=== PATIENT | male | born 1990 | race Caucasian/White ===

== ENCOUNTER 2016-02-17 11:48 | Emergency (ER) | payer BC, OTHER ==
[2016-02-17 12:16] VITALS: TEMP 98.4; BMI 33.9
--- NOTE | 2016-02-17 12:57 | PDOC ---
History of Present Illness - General History Source: Patient Exam Limitations: No Limitations - History of Present Illness Initial Comments: 02/17/16 13:04 The patient is a 25-year-old man with no past medical history who presents to the emergency department for further evaluation of lightheadedness and generalized weakness today. Patient admits he has been heavily drinking alcohol for the past 2 days, as a result of the holidays. He state she woke up today, lightheaded, weak and nauseous. No vomiting. No chest pain, cough, shortness of breath, vomiting or any urinary complaints. <Brittani Arcos - Last Filed: 02/17/16 13:16> <Claudio Billings - Last Filed: 02/17/16 16:49> - General Chief Complaint: Lightheaded Stated Complaint: DIZZY WEAK Past History <Brittani Arcos - Last Filed: 02/17/16 13:16> - Psycho/Social/Smoking Cessation Hx Anxiety: No Suicidal Ideation: No Smoking History: Never smoked Information on smoking cessation initiated: No Hx Alcohol Use: Yes (SOCIAL) Substance Use Type: None <Claudio Billings - Last Filed: 02/17/16 16:49> - Past Medical History Allergies/Adverse Reactions: Allergies Allergy/AdvReac Type Severity Reaction Status Date / Time No Known Allergies Allergy Verified 02/17/16 12:16 Home Medications: Ambulatory Orders NK [No Known Home Medication] 01/07/14 Review of Systems - Review of Systems Able to Perform ROS?: Yes Comments:: 02/17/16 13:04 GENERAL/CONSTITUTIONAL: Yes: Weakness. No fever or chills. GASTROINTESTINAL: No nausea, vomiting, diarrhea or constipation. GENITOURINARY: No dysuria, frequency, or change in urination. NEUROLOGIC: Yes: Lightheadednes. No headache, vertigo, loss of consciousness, or change in strength/sensation. <Brittani Arcos - Last Filed: 02/17/16 13:16> *Physical Exam - Vital Signs Last Vital Signs Temp Pulse Resp BP Pulse Ox 98.4 F 54 L 18 134/76 100 02/17/16 12:13 02/17/16 12:13 02/17/16 12:13 02/17/16 12:13 02/17/16 12:13 - Physical Exam Comments: 02/17/16 13:04 GENERAL: Awake, alert, and fully oriented. Alcohol on breath. HEAD: No signs of trauma EYES: PERRLA, EOMI, sclera anicteric, conjunctiva clear ENT: Auricles normal inspection, hearing grossly normal, nares patent, oropharynx clear without exudates. Moist mucosa NECK: Normal ROM, supple, no lymphadenopathy, JVD, or masses LUNGS: Breath sounds equal, clear to auscultation bilaterally. No wheezes, and no crackles HEART: Regular rate and rhythm, normal S1 and S2, no murmurs, rubs or gallops ABDOMEN: Soft, nontender, normoactive bowel sounds. No guarding, no rebound. No masses EXTREMITIES: Normal range of motion, no edema. No clubbing or cyanosis. No cords, erythema, or tenderness NEUROLOGICAL: Cranial nerves II through XII grossly intact. Normal speech. <Brittani Arcos - Last Filed: 02/17/16 13:16> - Vital Signs Last Vital Signs Temp Pulse Resp BP Pulse Ox 98.4 F 54 L 18 134/76 100 02/17/16 12:13 02/17/16 12:13 02/17/16 12:13 02/17/16 12:13 02/17/16 12:13 <Claudio Billings - Last Filed: 02/17/16 16:49> ED Treatment Course - LABORATORY CBC & Chemistry Diagram: 02/17/16 13:40 02/17/16 13:40 <Claudio Billings - Last Filed: 02/17/16 16:49> *DC/Admit/Observation/Transfer <Brittani Arcos - Last Filed: 02/17/16 13:16> - Discharge Dispostion Admit: No <Claudio Billings - Last Filed: 02/17/16 16:49> Diagnosis at time of Disposition: Alcohol abuse - Discharge Dispostion Disposition: HOME Condition at time of disposition: Improved - Patient Instructions Additional Instructions: AVOID ALCOHOL
[2016-02-17] MEDS ORDERED: SODIUM CHLORIDE 1,000 ML IV STA (12:59)
[2016-02-17 13:55] LABS: BASOPHIL 0.2 % (0-2.0); EOSINOPHIL 0.6 % (0-4.5); MCHC 33.5 g/dl (32.0-35.9); MEAN CELL VOLUME 86.5 fl (80-96); MEAN PLT VOLUME 8.6 fl (7.5-11.1); NEUTROPHILS 81.2 % (42.8-82.8); PLATELET COUNT 219 K/MM3 (134-434); RDW 13.9 % (11.9-15.9); WHITE BLOOD COUNT 10.6 K/mm3 (4.0-10.0)
[2016-02-17 14:20] LABS: ALBUMIN 4.3 g/dl (3.4-5.0); ANION GAP 12 (8-16); CALCIUM 9.1 mg/dL (8.5-10.1); CO2 28 mmol/L (21-32); CREATININE 0.6 mg/dL (0.7-1.3); GLUCOSE,RANDOM 87 mg/dL (74-106); SGPT/ALT 53 U/L (12-78)
[2016-02-17 14:22] LABS: ALK PHOS 74 U/L (45-117); BILIRUBIN,TOTAL 0.5 mg/dL (0.2-1.0); TOT PROT 7.8 g/dl (6.4-8.2)
[2016-02-17 14:35] LABS: URINE APPEARANCE CLEAR; URINE BILIRUBIN NEGATIVE (NEGATIVE); URINE BLOOD NEGATIVE (NEGATIVE); URINE COLOR STRAW; URINE GLUCOSE (UA) NEGATIVE (NEGATIVE); URINE KETONE NEGATIVE (NEGATIVE); URINE LEUK ESTERASE NEGATIVE (NEGATIVE); URINE NITRITE NEGATIVE (NEGATIVE); URINE PROTEIN NEGATIVE (NEGATIVE); URINE UROBILINOGEN NEGATIVE E.U./dl (0.2-1.0)
[2016-02-17 14:36] LABS: SGOT/AST 29 U/L (15-37)
[2016-02-17 14:59] LABS: URINE MARIJUANA THC NEGATIVE ng/ml (CUTOFF=50)
[2016-02-17 17:07] VITALS: BP 146/58; PULSE 56
--- NOTE | 2016-02-18 09:48 | EKG ---
Test Reason : Blood Pressure : / mmHG Vent. Rate : 056 BPM Atrial Rate : 056 BPM P-R Int : 154 ms QRS Dur : 106 ms QT Int : 446 ms P-R-T Axes : 044 049 024 degrees QTc Int : 430 ms SINUS BRADYCARDIA OTHERWISE NORMAL ECG NO PREVIOUS ECGS AVAILABLE Confirmed by ANNA LOZANO MD ([id number]) on 02/18/2016 9:48:10 AM Referred By: Overread By: ANNA LOZANO MD
== END 2016-02-17 17:07 | disposition home or self-care (01) ==
LOC: JER 11:48
PROC: 3E0337Z Introduction of Electrolytic and Water Balance Substance into Peripheral Vein, Percutaneous Approach (ICD-10-PCS; principal; 2016-02-17)
DX: F10.10 Alcohol abuse, uncomplicated (principal)
CPT/HCPCS: 36415; 80053; 81003; 85025; 93005; 93010; 99283-25; G0479

== ENCOUNTER 2016-05-25 09:49 | Emergency (ER) | payer OTHER ==
[2016-05-25 09:56] VITALS: BP 145/76; PULSE 59; TEMP 98.4; BMI 34.0
--- NOTE | 2016-05-25 11:28 | PDOC ---
History of Present Illness - General Chief Complaint: Blood Pressure Problem Stated Complaint: HIGH BLOOD PRESSURE Time Seen by Provider: 05/25/16 11:10 History Source: Patient Exam Limitations: No Limitations - History of Present Illness Initial Comments: 05/25/16 11:22 Chief complaint: High blood pressure and heart rate Patient is a healthy 25-year-old male who saw his doctor 3 months ago for a physical who states that he drank 4-5 whiskeys last night which she typically does on the weekend and drank coffee this morning and felt like his blood pressure was going up and his heart was racing. He is asymptomatic now. Patient has no history of this, no history in his family of early , sudden or unexplained drownings. GENERAL/CONSTITUTIONAL: No fever, weakness. dizziness HEAD, EYES, EARS, NOSE AND THROAT: No change in vision. No ear pain or discharge. No sore throat. CARDIOVASCULAR: No chest pain RESPIRATORY: No shortness of breath or cough GASTROINTESTINAL: No pain, nausea, vomiting, diarrhea or constipation GENITOURINARY: No dysuria MUSCULOSKELETAL: No neck or back pain SKIN: No rash NEUROLOGIC: No headache, vertigo, loss of consciousness, or loss of sensation. GENERAL: The patient is awake, alert, and fully oriented, in no acute distress. HEAD: Normal with no signs of trauma. EYES: Pupils equal, round and reactive to light, sclera anicteric, conjunctiva clear. ENT: pharynx: no erythema, no exudate, uvula midline NECK: supple CHEST: clear, nontender, rr ABD: soft, nontender EXTREMITIES: Normal range of motion, no edema. NEUROLOGICAL: Normal speech, normal gait. SKIN: Warm, Dry Past History - Past Medical History Allergies/Adverse Reactions: Allergies Allergy/AdvReac Type Severity Reaction Status Date / Time No Known Allergies Allergy Verified 05/25/16 09:50 Home Medications: Ambulatory Orders NK [No Known Home Medication] 01/07/14 HTN: Yes (border line) - Psycho/Social/Smoking Cessation Hx Anxiety: No Suicidal Ideation: No Smoking History: Never smoked Have you smoked in the past 12 months: No Information on smoking cessation initiated: No Hx Alcohol Use: Yes (weekend) Drug/Substance Use Hx: No Substance Use Type: None *Physical Exam - Vital Signs Last Vital Signs Temp Pulse Resp BP Pulse Ox 98.4 F 59 L 18 145/76 100 05/25/16 09:52 05/25/16 09:52 05/25/16 09:52 05/25/16 09:52 05/25/16 09:52 Medical Decision Making - Medical Decision Making 05/25/16 11:33 pt is asymptomatic after an episode of feeling like his blood pressure went up and his heart was racing. Now with no high-risk history in his family for sudden . Patient has a primary care doctor at [facility], he just doesn't remember his name and he saw him within the last 3 months for the physical. Will be instructed not to drink alcohol, caffeine or stimulants and to hydrate and follow-up with his doctor and return if there is any issues *DC/Admit/Observation/Transfer Diagnosis at time of Disposition: History of palpitations - Discharge Dispostion Disposition: HOME Condition at time of disposition: Stable - Patient Instructions Additional Instructions: Sure you are drinking plenty of water do not drink caffeine that includes coffee, tea, caffeinated sodas and drinks Do not drink alcohol and make sure you call your doctor to schedule an appointment within the next week to further evaluate this and return to the ER if worse.
--- NOTE | 2016-05-27 14:13 | EKG ---
Test Reason : Blood Pressure : / mmHG Vent. Rate : 056 BPM Atrial Rate : 056 BPM P-R Int : 184 ms QRS Dur : 094 ms QT Int : 424 ms P-R-T Axes : 023 050 017 degrees QTc Int : 409 ms SINUS BRADYCARDIA OTHERWISE NORMAL ECG WHEN COMPARED WITH ECG OF 17-FEB-2016 14:27, NO SIGNIFICANT CHANGE WAS FOUND Confirmed by ALINA SPENCER MD ([id number]) on 05/27/2016 2:12:56 PM Referred By: Confirmed By:ALINA SPENCER MD
== END 2016-05-25 11:37 | disposition home or self-care (01) ==
LOC: JERFT 09:49
DX: I10 Essential (primary) hypertension (principal); R00.2 Palpitations
CPT/HCPCS: 93005; 93010; 99281-25

== ENCOUNTER 2018-02-11 10:49 | Emergency (ER) | payer OTHER ==
[2018-02-11 10:56] VITALS: BMI 38.7
[2018-02-11] MEDS ORDERED: LIDOCAINE HCL 2% JELLY (30 ML/TUBE) TP ONE (12:09)
--- NOTE | 2018-02-11 12:09 | PDOC ---
History of Present Illness - General Chief Complaint: Pain Stated Complaint: PAIN Time Seen by Provider: 02/11/18 11:32 History Source: Patient Exam Limitations: No Limitations - History of Present Illness Initial Comments: 02/11/18 12:43 Patient is a 27-year-old male with no past medical history who presents to the emergency department with 1 week of hemorrhoids. Patient states he was seen by urgent care and prescribed witch mino cream and Preparation H. He states it has not been helping of pain has gotten worse. He has been doing sitz baths at home. Denies fevers, chills, nausea, vomiting, diarrhea, constipation. Past History - Travel Traveled outside of the country in the last 30 days: No Close contact w/someone who was outside of country & ill: No - Past Medical History Allergies/Adverse Reactions: Allergies Allergy/AdvReac Type Severity Reaction Status Date / Time No Known Allergies Allergy Verified 02/11/18 10:52 Home Medications: Ambulatory Orders Docusate Sodium [Colace -] 100 mg PO BID #14 capsule 02/11/18 Lidocaine 2% Jelly [Xylocaine 2% Jelly -] 1 applic TP BID #1 tube 02/11/18 Phenyleph/Pramoxin/Glycr/W.pet [Preparation H Cream] 26 gm RC ASDIR 02/11/18 Witch Mino 50% (Tucks) [Tucks Witch Mino Pads] 0 pad TP ASDIR 02/11/18 HTN: Yes (border line) - Suicide/Smoking/Psychosocial Hx Smoking History: Never smoked Have you smoked in the past 12 months: No Hx Alcohol Use: Yes (weekend) Drug/Substance Use Hx: No Substance Use Type: None Review of Systems - Review of Systems Able to Perform ROS?: Yes Comments:: 02/11/18 12:09 CONSTITUTIONAL: Absent: fever, chills, diaphoresis, generalized weakness, malaise, loss of appetite HEENT: Absent: rhinorrhea, nasal congestion, throat pain, throat swelling, difficulty swallowing, mouth swelling, ear pain, eye pain, visual Changes CARDIOVASCULAR: Absent: chest pain, loss of consciousness, palpitations, irregular heart rate, peripheral edema RESPIRATORY: Absent: cough, shortness of breath, dyspnea with exertion, orthopnea, wheezing, stridor, hemoptysis GASTROINTESTINAL: Present: hemorrhoid Absent: abdominal pain, abdominal distension, nausea, vomiting, diarrhea, constipation, melena, hematochezia GENITOURINARY: Absent: dysuria, frequency, urgency, hesitancy, hematuria, flank pain, genital pain MUSCULOSKELETAL: Absent: myalgia, arthralgia, joint swelling SKIN: Absent: rash, itching, pallor HEMATOLOGIC/IMMUNOLOGIC: Absent: easy bleeding, easy bruising, lymphadenopathy, frequent infections ENDOCRINE: Absent: unexplained weight gain, unexplained weight loss, heat intolerance, cold intolerance NEUROLOGIC: Absent: headache, focal weakness or paresthesias, dizziness, unsteady gait, seizure, mental status changes, bladder or bowel incontinence PSYCHIATRIC: Absent: anxiety, depression, suicidal or homicidal ideation, hallucinations. Is the patient limited Bengali proficient: No *Physical Exam - Vital Signs Last Vital Signs Temp Pulse Resp BP Pulse Ox 97.9 F 72 18 130/85 99 02/11/18 10:54 02/11/18 10:54 02/11/18 10:54 02/11/18 10:54 02/11/18 10:54 - Physical Exam Comments: 02/11/18 12:09 GENERAL: Well developed, well nourished. Awake and alert. No acute distress ABDOMINAL: Soft. Non-tender. Non-distended. No rebound or guarding. No organomegaly. Normoactive bowel sounds. RECTAL: Good rectal tone. Two non-thrombosed external hemorrhoids present at the 12 and 1 o'clock position, near the rectum. No internal hemorrhoids felt SKIN: Warm and dry. Normal capillary refill. No rashes. No jaundice. NEUROLOGICAL: Alert, awake, appropriate. Cranial nerves 2-12 intact. No deficits to light touch and temperature in face, upper extremities and lower extremities. No motor deficits in the in face, upper extremities and lower extremities. Normoreflexic in the upper and lower extremities. Normal speech. Toes are down- going bilaterally. Gait is normal without ataxia. PSYCHIATRIC: Cooperative. Good eye contact. Appropriate mood and affect. Moderate Sedation - Procedure Monitoring Vital Signs: Procedure Monitoring Vital Signs Temperature 97.9 F 02/11/18 10:54 Pulse Rate 72 02/11/18 10:54 Respiratory Rate 18 02/11/18 10:54 Blood Pressure 130/85 02/11/18 10:54 O2 Sat by Pulse Oximetry (%) 99 02/11/18 10:54 Medical Decision Making - Medical Decision Making 02/11/18 12:46 Pt is a 27 y/o M who presents to the ED for hemorrhoid pain for one week -On exam pt with two non-thrombosed external hemorrhoids. No internal hemorrhoids palpated -Lidocaine jelly given with relief of symptoms -DC home with supportive care and surgical consult -I discussed the physical exam findings, ancillary test results and final diagnoses with the patient. I answered all of the patient's questions. The patient was satisfied with the care received and felt comfortable with the discharge plan and treatment plan. The Patient agrees to follow up with the primary care physician/specialist within 24-72 hours. Return precautions were given. *DC/Admit/Observation/Transfer Diagnosis at time of Disposition: Acute hemorrhoid - Discharge Dispostion Disposition: HOME Condition at time of disposition: Stable Decision to Admit order: No - Prescriptions Prescriptions: Docusate Sodium [Colace -] 100 mg PO BID #14 capsule Lidocaine 2% Jelly [Xylocaine 2% Jelly -] 1 applic TP BID #1 tube - Referrals Referrals: Rao Aguilar MD [Staff Physician] - Casey Avila MD [Staff Physician] - - Patient Instructions Printed Discharge Instructions: DI for Hemorrhoids Additional Instructions: You have hemorrhoids. They are not clotted at this time Please take the colace twice a day to help soften your stool. Try not to strain when you have a bowel movement You may use the lidocaine jelly twice a day to help with the pain You may also use the creams as previously prescribed. You may take Tylenol 650mg every 4 hours as needed for pain Follow up with surgery this week. Referrals have been provided Return to the ED for worsening pain, nausea, fever or if you have any changes in your symptoms - Post Discharge Activity
[2018-02-11] MEDS ORDERED: LIDOCAINE HCL 2% JELLY (5 ML/TUBE) ONE (12:17)
[2018-02-11 13:00] VITALS: BP 125/75; PULSE 70; TEMP 98
== END 2018-02-11 12:45 | disposition home or self-care (01) ==
LOC: JER 10:49
DX: K64.4 Residual hemorrhoidal skin tags (principal)
CPT/HCPCS: 99282-25